=== PATIENT | female | born 1945 | race Two or more races ===

== ENCOUNTER 2018-06-12 09:48 | Outpatient (CLI) | payer OTHER ==
[~2018-06-12 09:48] MED LIST: AVELOX ABC PAC400 MG; GLYBURIDE2.5 MG; GLYBURIDE5 MG PO; IMODIUM ADVANCE1 TAB; MICARDIS40 MG; PRILOSEC40 MG; ZANTAC150 MG
== END 2018-06-12 09:50 | disposition home or self-care (01) ==
LOC: SONOGRAMA 09:48
DX: N63.10 Unspecified lump in the right breast, unspecified quadrant (principal); R92.0 Mammographic microcalcification found on diagnostic imaging of breast

== ENCOUNTER 2018-08-12 09:34 | Outpatient (CLI) | payer OTHER | END 2018-08-12 15:00 | disposition home or self-care (01) | LOC: LAB 09:34 | DX: D68.0 Von Willebrand disease (principal); I25.118 Atherosclerotic heart disease of native coronary artery with other forms of angina pectoris; I10 Essential (primary) hypertension; E11.65 Type 2 diabetes mellitus with hyperglycemia ==

== ENCOUNTER 2020-09-26 09:23 | Outpatient (CLI) | payer OTHER | END 2020-09-26 09:33 | disposition home or self-care (01) | LOC: RAD 09:23 | PROVIDERS: ATTEND Internal Medicine Pulmonary Disease | DX: R07.89 Other chest pain (principal); G47.33 Obstructive sleep apnea (adult) (pediatric); J98.11 Atelectasis; J94.8 Other specified pleural conditions; E66.01 Morbid (severe) obesity due to excess calories; C50.919 Malignant neoplasm of unspecified site of unspecified female breast ==

== ENCOUNTER → 2020-10-31 07:27 | Outpatient (CLI) | payer OTHER | END | disposition home or self-care (01) | LOC: LAB 07:27 | DX: E03.8 Other specified hypothyroidism (principal); E11.8 Type 2 diabetes mellitus with unspecified complications; E78.00 Pure hypercholesterolemia, unspecified ==

== ENCOUNTER 2021-03-15 11:16 | Outpatient (CLI) | payer OTHER | END 2021-03-15 11:59 | disposition home or self-care (01) | LOC: RAD 11:16 | DX: J90 Pleural effusion, not elsewhere classified (principal) ==

== ENCOUNTER 2022-07-18 14:52 | Outpatient (CLI) | payer OTHER | END 2022-07-18 15:01 | disposition home or self-care (01) | LOC: TOM 14:52 | PROVIDERS: ATTEND Internal Medicine Pulmonary Disease | DX: R06.02 Shortness of breath (principal); R07.1 Chest pain on breathing; S22.42XS Multiple fractures of ribs, left side, sequela; J94.9 Pleural condition, unspecified; J98.11 Atelectasis ==

== ENCOUNTER 2022-10-24 13:49 | Outpatient (CLI) | payer OTHER | END 2022-10-24 14:02 | disposition home or self-care (01) | LOC: RAD 13:49 | DX: M79.671 Pain in right foot (principal); M25.571 Pain in right ankle and joints of right foot; Z87.81 Personal history of (healed) traumatic fracture ==

== ENCOUNTER 2024-02-26 12:46 | Outpatient (CLI) | payer OTHER ==
[~2024-02-26 12:46] MED LIST changes: +LIDOCAINE PAIN1 EACH TOP
== END 2024-02-26 12:51 | disposition home or self-care (01) ==
LOC: MRI 12:46
DX: M25.511 Pain in right shoulder (principal)
CPT/HCPCS: 73221

== ENCOUNTER 2024-11-12 09:25 | Outpatient (CLI) | payer OTHER | END 2024-11-12 09:33 | disposition home or self-care (01) | LOC: TOM 09:25 | DX: R06.02 Shortness of breath (principal) ==

== ENCOUNTER → 2024-11-12 10:55 | Outpatient (CLI) | payer OTHER ==
[2024-11-12 11:52] LABS: ABG PO2 85.2 mmHg (80-100); ABG pCO2 42.9 mmHg (35-45); BASE EXCESS 3.8 mmol/l; BICARBONATE 28.4 mmol/l (23-25); SaO2 96.9 %; Tco2 29.8 mmol/l; allen test SATISFACTORY; mode ROOM AIR; o2 21 %; puncture site RADIAL RIGHT
[2024-11-12 13:51] LABS: FERRITIN 10.4 NG/ML (8-252)
[2024-11-12 13:57] LABS: FOLIC ACID 11.23 ng/ml (4.78-20)
== END | disposition home or self-care (01) ==
LOC: LAB 10:55
PROVIDERS: ATTEND Internal Medicine Pulmonary Disease
DX: R06.02 Shortness of breath (principal); D64.9 Anemia, unspecified